=== PATIENT | male | born 1975 | race Two or more races ===

== ENCOUNTER → 2017-01-30 | Day surgery (SDC) | payer BC ==
[2017-01-28 08:30] VITALS: BMI 20.9
[~2017-01-30] MED LIST: BUPIVACAINE (PF) 0.25% 30 ML VIAL SQ ONE; DEXAMETHASONE SOD PHOSPHATE 10 MG/ML 1 ML VIAL IV ONE; GLYCOPYRROLATE 0.2 MG/ML 2 ML VIAL ONE; HEPARIN SODIUM,PORCINE 5,000 UNIT/ML 1 ML VIAL SQ ONE; HYDROcodone/APAP 5-325MG 1 EACH TAB ONE; HYDROmorphone (PF) 1 MG/ML ONE; HYDROmorphone 0.5 MG/0.5 ML SYRINGE IVP PRN; KETOROLAC 30 MG/ML 1 ML VIAL ONE; LACTATED RINGERS 1,000 ML BAG IV ONE; LACTATED RINGERS 1,000 ML IV ONE; LIDOCAINE 1% 20 ML VIAL (10MG/ML) FOR IV START INTRADERMA PRN; LIDOCAINE 1% INJ 10MG/ML (20 ML MDV) ONE; MIDAZOLAM 2 MG/2 ML VIAL IV PRN; MIDAZOLAM 2 MG/2 ML VIAL ONE; NEOSTIGMINE 1 MG/ML 10 ML VIAL ONE; ONDANSETRON 4 MG/2 ML VIAL IVP ONE; PROPOFOL 10 MG/ML 20 ML VIAL IV ONE; ROCURONIUM BROMIDE 10 MG/ML 10 ML VIAL IV ONE; SCOPOLAMINE 1.5MG/72HR PATCH TRANSDERM ONE; SUCCINYLCHOLINE CHLORIDE 100 MG/5 ML SYR IV ONE; TAMSULOSIN 0.4 MG CAP.ER.24H PO ONE; ceFAZolin IN SWFI 2 GM/20 ML SYRINGE IVP ONE; fentaNYL (PF) 50 MCG/ML 2 ML AMP ONE
[2017-01-30] MEDS: LACTATED RINGERS 1,000 ML IV SCH (08:55)
--- NOTE | 2017-01-30 09:58 | P.GSHP ---
History of Present Illness H&P Date: 01/30/17 CHIEF COMPLAINT: Inguinal hernia, bilateral HISTORY OF PRESENT ILLNESS: The patient is a 41-year-old male who presents with a history of swelling and pain along both groins. He's noted increased swelling including pain of the area. Now he presents for repair of his inguinal hernia. PAST MEDICAL HISTORY: Please see list. PAST SURGICAL HISTORY: Please see list. MEDICATIONS: Please see list. ALLERGIES: Please see list. SOCIAL HISTORY: No illicit drug use FAMILY HISTORY: No reports of Crohn disease or ulcerative colitis. REVIEW OF ORGAN SYSTEMS: CONSTITUTIONAL: No reports of fevers or chills. No reports of weight loss despite prior attempts. GI: Denies any blood in stools or constipation. PHYSICAL EXAM: VITAL SIGNS: Stable GENERAL: Well-developed pleasant male in no acute distress. HEENT: No scleral icterus. Extraocular movements grossly intact. Moist buccal mucosa. NECK: Supple without lymphadenopathy. CHEST: Unlabored respirations. Equal bilateral excursions. CARDIOVASCULAR: Regular rate and rhythm. Distal 2+ pulses. ABDOMEN: Soft, nondistended. No peritoneal signs. Palpable defect of the bilateral groin. MUSCULOSKELETAL: No clubbing, cyanosis, or edema. ASSESSMENT: 1. Inguinal hernia, bilateral symptomatic. PLAN: 1. Recommend proceeding with robotic assisted laparoscopy bilateral inguinal repair with mesh. 2. Benefits and risks of surgical intervention was discussed including possibility of open technique. 3. May need overnight observation pending anticipated postoperative pain. 4. DVT prophylaxis. 5. Antibiotic prophylaxis. Past Medical History Additional Past Medical History / Comment(s): osiris inguinal hernia History of Any Multi-Drug Resistant Organisms: None Reported Past Surgical History: Appendectomy, Hernia Repair Additional Past Surgical History / Comment(s): oisris inguinal hernia Past Anesthesia/Blood Transfusion Reactions: No Reported Reaction Smoking Status: Current every day smoker - Past Family History Father Family Medical History: Pulmonary Embolus Medications and Allergies Home Medications Medication Instructions Recorded Confirmed Type No Known Home Medications [No 01/28/17 01/28/17 History Known Home Medications] Allergies Allergy/AdvReac Type Severity Reaction Status Date / Time No Known Allergies Allergy Verified 01/30/17 08:39
[2017-01-30 11:05] VITALS: BP 103/71; PULSE 84; RESP 16; TEMP 98.1
--- NOTE | 2017-02-10 22:01 | P.OP ---
Date of Procedure: 01/30/17 Indications for Procedure: SURGEON: CARIN SALAZAR MD CLOTH CLASSER: 1. LUIS ENRIQUE CARMONA PREOPERATIVE DIAGNOSES: 1. Recurrent right inguinal hernia. 2. History of bilateral inguinal hernia repair. POSTOPERATIVE DIAGNOSES: 1. Recurrent right inguinal hernia, indirect right inguinal hernia, Nyhus type III. 2. History of bilateral inguinal hernia repair. 3. Recurrent left inguinal hernia, indirect, Nyhus II. 4. Incarcerated right inguinal lipoma. OPERATION: 1. Robotic-assisted da Christian Xi laparoscopic bilateral inguinal hernia repair with mesh, 11.[address] 2. Robotic-assisted da Christian Xi laparoscopic excision of incarcerated right inguinal lipoma. ANESTHESIA: General with local anesthetic ESTIMATED BLOOD LOSS: 5 mL. SPECIMENS REMOVED: Incarcerated right inguinal lipoma. COMPLICATIONS: None. INDICATIONS: The patient is a 41-year-old gentleman who presents with history of right groin swelling. He has a personal history of previous bilateral inguinal hernia repairs. Now presents for definitive surgical intervention. Laparoscopic versus open and robotic approaches were discussed. Benefits and risks including bleeding, infection, injury to the vas deferens as well as sterility and chronic groin pain were reviewed. Placement of mesh was also described. Informed consent was obtained. DESCRIPTION: In the preoperative area, the patient was marked with indelible marker along the inguinal hernia. The patient was brought to the operating room and initially laid in supine position. The abdomen had been prepped and draped in standard sterile fashion. Ioban draping was also placed. Ratliff catheter was also placed. Prior to incision, a timeout protocol was confirmed with surgical team regarding patient's name including procedures to be performed and location along the right groin. Initial positioning for the robotic assisted ports were selected whereby 20 cm superior to the target anatomy, 0 degree 5 mm laparoscopic trocar entry was performed at the left upper quadrant. The abdomen was insufflated to 15 mmHg which he had tolerated well. Diagnostic laparoscopy demonstrated 3 cm indirect inguinal hernia along the right groin. Next, along the epigastrium, 8 mm robot trocar was placed. An 8-mm robotic trocar was placed under direct visualization at the right upper quadrant. The 5 mm port was exchanged for a 8 mm trocar. All trocars were positioned between 8 to 10-cm apart from each other. The Da Christian XI robot was primed, draped, prepared for docking along the left side of the patient. I then went to the [employer] Xi console. The photography assistant was at bedside for exchange of the robot arms and equipment. At the right groin, a 3 cm indirect inguinal hernia was identified lateral to the epigastric vessels. The hernia sac was evaginated whereby the peritoneum was scored using Endo scissors with cautery. Once completely reduced into the abdominal cavity, the peritoneal sac of the hernia was stripped and a lipoma of the right groin was reduced. The sac was resected and then passed off for further pathological analysis. The size of the hernia defect was 3 cm with intraoperative films obtained. Using a 2-0 Surgidac, the peritoneal defect of the right inguinal hernia site was closed using a pursestring suture of 2-0 Surgidac. The defect was found to be completely closed with complete reduction of the right inguinal hernia was confirmed. As an onlay, an 11.[address] mesh by Bard was initially cut in half and entered into the abdominal cavity via the 8 mm trocar. The mesh was tacked to the pelvis using 2-0 VLOC x 9-inch length sutures. At the left groin, a 2 cm indirect and direct inguinal hernia was identified lateral to the epigastric vessels. The hernia sac was evaginated whereby the peritoneum was scored using Endo scissors with cautery. The size of the hernia defect was 2 cm with intraoperative films obtained. Using a 2-0 Surgidac, the peritoneal defect of the right inguinal hernia site was closed using a pursestring suture of 2-0 Surgidac. The defect was found to be completely closed with complete reduction of the left inguinal hernia was confirmed. As an onlay, an 11.[address] mesh by [employer] was initially cut in half and entered into the abdominal cavity via the 8 mm trocar. The mesh was tacked to the pelvis using 2-0 VLOC x 9-inch length suture The robot was undocked from the patient's bedside. I then rescrubbed into the case. The fascial defect was reapproximated using 0-Vicryl and a Mauricio [place]. Insufflation was released from the abdominal cavity and all instruments were removed from the abdominal cavity. The rest of incisions were reapproximated using 4-0 Monocryl in a running subcuticular fashion. Local anesthetic was placed along the incision including bilateral groin block. Incisions were cleansed using dilute hydrogen peroxide. Dermabond was applied to the skin. At the end of the procedure, the needle, sponge and instrument counts had been verified correct by the surgical assistant. The patient had tolerated the procedure well and was taken to the postanesthesia care unit in stable condition. FINDINGS: 1. Incarcerated right inguinal lipoma excised. 2. Recurrent left inguinal hernia, direct and indirect type II 3. Right indirect inguinal hernia, Nyhus type III. Plan - Discharge Summary New Discharge Prescriptions: No Action HYDROcodone/APAP 5-325MG [[place] 5-325] 1 tab PO Q6HR PRN #20 tab PRN Reason: Pain Docusate [Colace] 100 mg PO BID cap Discharge Medication List Docusate [Colace] 100 mg PO BID cap 02/10/17 [Rx] HYDROcodone/APAP 5-325MG [[place] 5-325] 1 tab PO Q6HR PRN #20 tab 02/10/17 [Rx]
== END ==
LOC: OR 08:20
PROVIDERS: ATTEND Surgery Plastic and Reconstructive Surgery
DX: K40.21 Bilateral inguinal hernia, without obstruction or gangrene, recurrent (principal); D17.6 Benign lipomatous neoplasm of spermatic cord; F17.200 Nicotine dependence, unspecified, uncomplicated
CPT/HCPCS: 88302; 49651; 55559; C1781; J2250; J1644; J1100; J2710; J0690; J2405; J2001; J3010; J1885; J1170; J0330; J2704